=== PATIENT | male | born 1960 | race Caucasian/White ===

== ENCOUNTER 2017-06-17 07:00 | Emergency (ER) | payer BC, MEDICAID ==
[2017-06-17] MEDS ORDERED: Aspirin 81 MG Tab.Chew PO ONE (07:14)
[2017-06-17] MEDS ORDERED: Isosorbide Mononitrate 60 MG Tab.ER PO SCH (09:00)
[2017-06-17] MEDS ORDERED: Nitroglycerin/D5W 25 MG/250 ML BOTTLE IV SCH (09:30)
[2017-06-17] MEDS ORDERED: Sodium Chloride 0.9% 1,000 ML IV SCH (10:00)
[2017-06-17 10:13] VITALS: BP 138/86
--- NOTE | 2017-06-17 11:37 | CR ---
INDICATION: Chest pain. CHEST: Portable AP upright view of the chest, 06/17/2017 - no comparisons. The heart is enlarged. The aorta is tortuous and calcified in the arch area. Overlying EKG leads are noted. Upper lung field pulmonary vasculature is prominent. Interstitial markings are prominent. Findings suggest CHF and interstitial lung edema of mild degree. It is difficult to entirely exclude minimal patchy bronchopneumonia at the lung bases due to the heavy markings present. When clinically possible, full inspiration PA and lateral views of the chest may be helpful. There is also evidence of exogenous obesity. IMPRESSION: 1. Possible CHF with interstitial lung edema in a patient with ASHD and cardiomegaly. 2. Cannot exclude minimal patchy bronchopneumonia at the lung bases. 3. Exogenous obesity. MTDD
--- NOTE | 2017-06-20 13:25 | ER ---
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 On arrival to the hospital, his blood pressure was 180/110. When asked about his blood pressure, he said that he had been taking blood pressure medications 6 months ago, but his blood pressures were normal, so he had stopped taking and stopped going to his doctor. The patient denies any gastrointestinal symptoms, fatty food intolerance. He has back pain, arm pain, jaw pain. Two weeks ago, the patient fell into the basement. He fell forward and onto two cement blocks with most of his abdomen was struck; not in his chest. He denied neck or head pain. He caught himself before he hit the floor with his arms, but he struck his mid abdomen with these 2 cement blocks. He has not had any bowel changes, blood in his stool, black tarry stool, diarrhea, constipation, change in bowels. On , he knows, when he fell, he was short of breath even prior to that on occasions, and he states he gets short of breath after walking a block. No recent fever. No chills. No back pain. The patient does a lot of hard labor and works "14 hours a day." /[id number] LS/MODL CONTINUATION: The patient notes he has some shortness of breath at nighttime. He has shortness of breath, dyspnea on exertion of one block. He describes the chest discomfort as "tightness in his neck". There is no chest wall discomfort, it is all supraclavicular and radiating superior to his left superior neck, left mandible retro to the angle of the mandible. The patient works in maintenance. He has done in a lot of physical labor. His last weight was 270 pounds. He has occasional swelling in his ankles. Denies smoking. Denies diabetes and has been treated for hypertension, but has been out of his antihypertensive medicine 8 months ago, decided not to refill because his pressures were always in the 130s. He has one brother with myocardial infarction at age 54. Father has stents and myocardial disease. Mother is healthy. REVIEW OF SYSTEMS: GENERAL: Denies headache, neck stiffness, except for the pain noted in his neck with the supraclavicular pain. RESPIRATORY: He has shortness of breath. Denies cough. HEART: Denies tachypnea or irregular heartbeat, near syncope or syncope. ABDOMEN: Denies abdominal discomfort, GERD, diarrhea, constipation blood in the stool, black tarry stool, frequency, urgency, dysuria. EXTREMITIES: Difficulty walking and pain in his legs or swelling in his ankles. NEUROLOGIC: Denies headaches, seizures, or neurological weakness, or paresthesias. PSYCHIATRIC: Negative. MEDICATIONS: The patient takes aspirin. FAMILY HISTORY: Father had heart disease. Brother of myocardial infarction at age 54. Father has stent. Mother is alive. PHYSICAL EXAMINATION: VITAL SIGNS: Blood pressure 161/96, heart rate 77, respirations 12, oxygen saturation 96%, and temperature is 36.9 degrees centigrade. The patient had other blood pressures at 0500 hours 182/86, at 0505 hours 203/82, at 0658 hours 161/96, at 0805 hours 136/84, presently blood pressure 136/89. Heart rate 68, respirations 14, and oxygen saturation 98%. Afebrile. CONSTITUTIONAL: The patient is overweight, pleasant fellow in no acute distress. HEENT: PERRLA intact. Pharynx without abnormality. NECK: Supple. No thyromegaly or masses in neck. No cervical adenopathy. No bruits. LUNGS: Clear without rales, rhonchi, or wheezes. HEART: S1, S2. Regular rate and rhythm. ABDOMEN: Soft. No guarding. No abdominal discomfort. MUSCULOSKELETAL: No chest wall discomfort. No supraclavicular discomfort and no sternoclavicular joint pain or acromioclavicular pain on the left side. No sternochondral pain on the left side or right side. EXTREMITIES: Without pedal edema. NEUROLOGIC: Deep tendon reflexes, 1+ in the upper extremities, zero DTRs lower extremities. Sensations intact. Gait is appropriate. Strength is good. IMAGING DATA: Chest x-ray, no cardiomegaly. No masses. EKG: Sinus rhythm, occasional PVC, and no ST elevation. Poor R-wave progression across the anterior precordial leads V1 to V3 - low voltage. LABORATORY FINDINGS: Hemoglobin 14.9, white count 8600, PMNs 68, lymphocytes 18, monos 9, platelets 319,000. D-dimer is 106 and complete metabolic panel is normal except for glucose trace elevated 119, sodium 139, potassium 3.8, chloride 103, bicarb 29, BUN 13, creatinine 1.1. Urine drug screen is negative. ASSESSMENT: When I had been to talk to him on several occasions after this that I discovered that he has had 5 different bouts of less than a minute to 2 minutes of chest pain in the emergency room. Prior to this he ahd not told anyone that he was having ten episodes of chest pain. With this new infpormation an nitroglycerin drip was started immediately,and he was given a heparin 5000 mg of bolus and followedi with 1000unit heparin /hr drip. He had 324 mg aspirin on arrival. The patient to be sent to Dr. Alarcon, staff hospitalists of [facility], by ambulance. His pressure now has stabilized at 130/83. DIAGNOSES: Unstable angina, obesity, hypertension and treated, and family history of heart disease, brother with myocardial infarction at age 54. /[id number] EDWIN/ZACHARY MAST
== END 2017-06-17 10:40 ==
LOC: FB.ED 07:00
DX: I20.0 Unstable angina (principal); I10 Essential (primary) hypertension; E66.9 Obesity, unspecified
CPT/HCPCS: 36415; 71045; 72125; 80053; 80305; 83880; 84443; 84484; 85025; 85379; 93005; 96365; 99284; 99285; A9270; J7040; J7030

== ENCOUNTER 2023-11-18 10:52 | Emergency (ER) | payer MEDICAID ==
[2023-11-18] MEDS ORDERED: Nitroglycerin 0.4 MG Tab.SL SL PRN (11:04)
[2023-11-18] MEDS ORDERED: Sodium Chloride 0.9% 10 ML Syringe FLUSH PRN (11:04)
[2023-11-18] MEDS: Aspirin 81 MG Tab.Chew PO ONE (11:28)
[2023-11-18] MEDS: Sodium Chloride 0.9% 1,000 ML IV SCH (11:29)
[2023-11-18] MEDS: Sodium Chloride 0.9% 500 ML IV ONE ×2 (11:34→12:24)
[2023-11-18] MEDS: Potassium Chloride 20 MEQ Tab.ER PO ONE (12:22)
[2023-11-18 14:55] VITALS: BP 135/76; PULSE 86
== END 2023-11-18 14:55 | disposition home or self-care (01) ==
LOC: FB.ED 10:52
DX: I48.19 Other persistent atrial fibrillation (principal); I10 Essential (primary) hypertension; Z90.49 Acquired absence of other specified parts of digestive tract
CPT/HCPCS: 36415; 71045; 83735; 84484; 85379; 96360; 96361; 99285; A9270; J7030; J7040